=== PATIENT | female | born 1995 | race Caucasian/White ===

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

== ENCOUNTER 2017-10-19 16:03 | Emergency (ER) | payer BC ==
[2017-10-19 16:17] VITALS: BP 118/68
--- NOTE | 2017-10-19 17:26 | UC ---
FLU HPI - HPI Summary HPI Summary: Pt here w/ flu-like sx x [address], aches, fever, nasal congestion w/ PND, cough, nausea w/ upset stomach and diarrhea. Roommates have had influenza. Has not tried anything for sx yet. Temp in dorm is fixed - hot and dry at times. LMP - last week. No intercourse in past 2 months. - History of Current Complaint Chief Complaint: UCGeneralIllness Stated Complaint: ACHES, COUGH, CHILLS Time Seen by Provider: 10/19/17 17:07 Hx Obtained From: Patient Hx Last Menstrual Period: 10/09/17 Pain Intensity: 0 - Allergy/Home Medications Allergies/Adverse Reactions: Allergies Allergy/AdvReac Type Severity Reaction Status Date / Time oxycodone Allergy Intermediate body itches Verified 10/19/17 16:17 PMH/Surg Hx/FS Hx/Imm Hx Previously Healthy: Yes - Surgical History Surgical History: None - Family History Known Family History: Positive: None, Hypertension - Social History Occupation: Student Lives: Dormitory/Roommates Alcohol Use: Rare Substance Use Type: None Smoking Status (MU): Never Smoked Tobacco Review of Systems Constitutional: Fever, Chills Skin: Negative Eyes: Negative ENT: Sore Throat, Nasal Discharge Respiratory: Cough Cardiovascular: Negative Gastrointestinal: Diarrhea Genitourinary: Negative Motor: Negative Neurovascular: Negative Musculoskeletal: Arthralgia Neurological: Headache Psychological: Negative Is Patient Immunocompromised?: No All Other Systems Reviewed And Are Negative: Yes Physical Exam Triage Information Reviewed: Yes Appearance: Well-Appearing - appears mildly fatigued, No Pain Distress, Well- Nourished Vital Signs: Initial Vital Signs Temp 98.8 F 10/19/17 16:12 Pulse 97 10/19/17 16:12 Resp 18 10/19/17 16:12 BP 118/68 10/19/17 16:12 Pulse Ox 97 10/19/17 16:12 Vital Signs Reviewed: Yes Eye Exam: Normal Eyes: Positive: Conjunctiva Clear ENT Exam: Normal ENT: Positive: Normal ENT inspection, Hearing grossly normal, Pharynx normal - cobblestoning, Nasal congestion, Nasal drainage - blody drainage from Rt side ( triggered by influenza swab collection - no active bleeding) -mucosa erythematous, edematous and w/ stuck on d/c, TMs normal, Uvula midline. Negative: Trismus, Muffled voice, Hoarse voice, Sinus tenderness Neck exam: Normal Neck: Positive: Supple, Nontender, No Lymphadenopathy Respiratory Exam: Normal Respiratory: Positive: Lungs clear, Normal breath sounds. Negative: Crackles, Rhonchi, Stridor, Wheezing Cardiovascular Exam: Normal Cardiovascular: Positive: RRR Abdominal Exam: Normal Abdomen Description: Positive: Nontender, No Organomegaly, Soft Bowel Sounds: Positive: Present Musculoskeletal Exam: Normal Musculoskeletal: Positive: Strength Intact Neurological Exam: Normal Neurological: Positive: Alert Psychological Exam: Normal Skin Exam: Normal Flu Course/Dx - Course Course Of Treatment: flu swab negative - Differential Dx/Diagnosis Provider Diagnoses: *viral syndrome Discharge - Discharge Plan Condition: Stable Disposition: HOME Patient Education Materials: Viral Syndrome (ED) Forms: *School Release Referrals: [facility] [Outside] Additional Instructions: Perform nasal wash/netti pot 2 x day with 8 ounces of warm water + 1/4 teaspoon of salt or saline nasal spray as needed Perform throat gargles with warm salt water as needed Drink 60+ ounces of water daily - also juice, gatorade, gingerale - avoid caffeine Sleep 8+ hours per night Avoid Dairy and sugar Drink hot herbal/decaf tea with lemon & honey Drink chicken broth - you may also try BRAT diet (Bananas, Rice, Applesauce, [place]) Use a humidifier in your house, but especially near bed at night. You may also keep home temperature at 68F or less. Try a facial steam with or without eucalyptus essential oil or Terrell's vapor rub for decongestion. Cough drops Avoid smoke, candles, perfumes/colonge, air fresheners, scented lotions, etc Consider taking Vitamin D3 5,000iu and Vitamin C 1,000mg every day during illness
== END 2017-10-19 17:38 | disposition home or self-care (01) ==
LOC: UCCORT 16:03
DX: B34.9 Viral infection, unspecified (principal); Z20.828 Contact with and (suspected) exposure to other viral communicable diseases
CPT/HCPCS: 87502; 99211; G0463

== ENCOUNTER 2017-12-08 18:43 | Emergency (ER) | payer BC ==
--- NOTE | 2017-12-08 19:22 | UC ---
Skin Complaint HPI - HPI Summary HPI Summary: Pt presents with sore throat and sinus congestion for the last 3 days. Also was recently exposed to head lice and would like to be checked. She has not taken anything OTC and denies seeing nits/lice or having head itching. Denies fever, chills, cough, SOB, chest pain. - History of Current Complaint Time Seen by Provider: 12/08/17 19:08 Stated Complaint: LICE CONCERN Hx Obtained From: Patient Hx Last Menstrual Period: 10/09/17 Onset/Duration: Sudden Onset - Allergy/Home Medications Allergies/Adverse Reactions: Allergies Allergy/AdvReac Type Severity Reaction Status Date / Time oxycodone Allergy Intermediate body itches Verified 12/08/17 19:29 Home Medications: Home Medications Sertraline* [Zoloft*] 50 mg PO BEDTIME 12/08/17 [History Confirmed 12/08/17] Review of Systems Constitutional: Negative Skin: Other - Head itching ENT: Sore Throat, Sinus Congestion Respiratory: Negative Cardiovascular: Negative Gastrointestinal: Negative Neurovascular: Negative Musculoskeletal: Negative Neurological: Negative Psychological: Negative All Other Systems Reviewed And Are Negative: Yes PMH/Surg Hx/FS Hx/Imm Hx - Additional Past Medical History Additional PMH: Anxiety Previously Healthy: Yes - Surgical History Surgical History: None - Family History Known Family History: Positive: None, Hypertension - Social History Occupation: Student Lives: Dormitory/Roommates Alcohol Use: Rare Substance Use Type: None Smoking Status (MU): Never Smoked Tobacco Physical Exam - Summary Physical Exam Summary: GENERAL: NAD. WDWN. No pain distress. SKIN: No lice or nits appreciated HEENT: Head: AT/NC Eyes: EOM intact. Conjunctiva clear without inflammation or discharge. Ears: Hearing grossly normal. TMs intact, no bulging, erythema, or edema. Nose: Nasal mucosa pink and moist. NTTP maxillary and frontal sinus. Throat: Posterior oropharynx Mild erythema and 2+ tonsillar enlargement. No exudates. Uvula midline. NECK: Supple. Nontender. No lymphadenopathy. CHEST: CTAB. No r/r/w. No accessory muscle use. Breathing comfortably and in no distress. CV: RRR. Without m/r/g. Pulses intact. Brisk cap refill. NEURO: Alert. CN II-XII grossly intact. PSYCH: Age appropriate behavior. Triage Information Reviewed: Yes Course/Dx - Course Course Of Treatment: No lice or nits appreciated. POC strep negative. Suspect viral pharyngitis. F/u prn - Diagnoses Provider Diagnoses: Viral pharyngitis. Exposure to head lice Discharge - Sign-Out/Discharge Documenting (check all that apply): Discharge - Discharge Plan Condition: Stable Disposition: HOME Patient Education Materials: Pharyngitis (ED) Referrals: Non Staff,Doctor [Primary Care Provider] - Additional Instructions: If you develop a fever, shortness of breath, chest pain, new or worsening symptoms - please call your PCP or go to the ED. - Billing Disposition and Condition Condition: STABLE Disposition: HOME
[2017-12-08 19:29] VITALS: BP 117/65
== END 2017-12-08 20:00 | disposition home or self-care (01) ==
LOC: UCCORT 18:43
DX: J02.8 Acute pharyngitis due to other specified organisms (principal); Z88.5 Allergy status to narcotic agent; Z20.7 Contact with and (suspected) exposure to pediculosis, acariasis and other infestations
CPT/HCPCS: 87651; 99211; G0463

== ENCOUNTER 2018-06-15 11:42 | Emergency (ER) | payer BC ==
[2018-06-15 12:01] VITALS: BP 117/60
[2018-06-15] MEDS ORDERED: Tetan/Diph/Pertus SYR(Tdap)* 0.5 ML SYR(BOOSTRIX) use SYR IM ONE (12:05)
[2018-06-15] MEDS ORDERED: Lidocaine/Epi 1.5%-1:200,000* 30 ML VIAL INJ ONE (12:08)
[2018-06-15] MEDS ORDERED: Lidocaine 2% W/EPI 1:100,000* 20 ML MDV ONE (12:13)
[2018-06-15] MEDS ORDERED: Lidocaine 2% EPI 1:200000 MPF*10-20 ML VIAL INJ ONE (12:26)
--- NOTE | 2018-06-15 12:32 | UC ---
Skin Complaint HPI - HPI Summary HPI Summary: Cut on left hand with a knife this morning. Unknown last tetanus. No numbness or weakness of the fingers. - History of Current Complaint Chief Complaint: UCLaceration Time Seen by Provider: 06/15/18 12:04 Stated Complaint: LEFT HAND LACERATION Hx Obtained From: Patient Hx Last Menstrual Period: 05/27/18 Onset/Duration: Sudden Onset, Lasting Hours Skin Exposure Onset/Duration: Hours Ago Timing: Constant Onset Severity: Moderate Current Severity: Mild Pain Intensity: 5 Location: Discrete, Hand (Left) Character: Painful Aggravating Factor(s): Touch Alleviating Factor(s): Nothing - rest. Associated Signs & Symptoms: Positive: Tenderness - Allergy/Home Medications Allergies/Adverse Reactions: Allergies Allergy/AdvReac Type Severity Reaction Status Date / Time oxycodone Allergy Intermediate body itches Verified 12/08/17 19:29 Review of Systems Skin: Other - laceration All Other Systems Reviewed And Are Negative: Yes PMH/Surg Hx/FS Hx/Imm Hx Previously Healthy: Yes - Surgical History Surgical History: Yes Surgery Procedure, Year, and Place: bilateral knee surgery - Family History Known Family History: Positive: None, Hypertension - Social History Occupation: Student Alcohol Use: Occasionally Substance Use Type: None Smoking Status (MU): Never Smoked Tobacco Physical Exam Triage Information Reviewed: Yes Appearance: Well-Appearing, No Pain Distress, Well-Nourished Vital Signs: Initial Vital Signs Temp 98.6 F 06/15/18 11:57 Pulse 78 06/15/18 11:57 Resp 13 06/15/18 11:57 BP 117/60 06/15/18 11:57 Pulse Ox 100 06/15/18 11:57 Vital Signs Reviewed: Yes Eyes: Positive: Conjunctiva Clear ENT: Positive: Normal ENT inspection Neck: Positive: Supple Respiratory: Positive: No respiratory distress Cardiovascular: Positive: Brisk Capillary Refill Abdomen Description: Negative: Distended Musculoskeletal: Positive: Strength Intact, ROM Intact, No Edema Neurological: Positive: Alert, Muscle Tone Normal. Negative: Fatigued Psychological: Positive: Age Appropriate Behavior Skin: Positive: Other - 1cm laceration with fat protruding. straight. Laceration Repair - Laceration Repair 1 Description: Linear Laceration Size After Repair: Length (cm) - 1cm Modified For Repair: No Type Injection: Local Anesthesia Used: 2.0% Lido Additive Used (in ml): Epi Cleansing Completed Via Routine Prep: Yes Irrigation With Pressure Irrigation Device: Yes Closure Material: Sutures Closure Method: Single Layer Suture Of: Skin Suture Type: Prolene - 5-0 Two total. Course/Dx - Diagnoses Provider Diagnoses: laceration repair simple. Discharge - Sign-Out/Discharge Documenting (check all that apply): Patient Departure All imaging exams completed and their final reports reviewed: No Studies - Discharge Plan Condition: Good Disposition: HOME Patient Education Materials: Laceration (ED), Care For Your Stitches (DC) Forms: *Work Release Referrals: No Primary Care Phys,NOPCP [Primary Care Provider] - - Billing Disposition and Condition Condition: GOOD Disposition: Home
== END 2018-06-15 12:40 | disposition home or self-care (01) ==
LOC: UCCORT 11:42
DX: S61.412A Laceration without foreign body of left hand, initial encounter (principal); W26.0XXA Contact with knife, initial encounter; Y92.9 Unspecified place or not applicable; Z88.5 Allergy status to narcotic agent
CPT/HCPCS: 12001; 90471; 90715; 99211; G0463

== ENCOUNTER 2018-12-11 12:31 | Emergency (ER) | payer BC ==
[2018-12-11 13:02] VITALS: BP 107/57
[2018-12-11] MEDS ORDERED: Acetaminophen TAB* 325 MG PO ONE (13:07)
[2018-12-11 13:24] LABS: Influenza A Molecular NEGATIVE (Negative); Influenza B Molecular NEGATIVE (Negative)
--- NOTE | 2018-12-11 13:40 | UC ---
FLU HPI - HPI Summary HPI Summary: Pt presents with c/o sudden onset ST, fever, chills, and body aches X 2 days. Additionally, pt has a distal left thumb fracture that she is being followed by local orthopedic provider and just completed 10 days of antibiotic for osteomylitis prevention - History of Current Complaint Chief Complaint: UCGeneralIllness Stated Complaint: FEVER DIARRHEA BODYACHES Time Seen by Provider: 12/11/18 13:05 Hx Obtained From: Patient Hx Last Menstrual Period: 12/02/18 ?: No Onset/Duration: Sudden Onset, Lasting Days, Still Present Severity Currently: Moderate Severity Initially: Moderate Pain Intensity: 5 Associated Signs & Symptoms: Positive: Fever, Myalgia, Sore Throat, Nasal Congestion Related Hx: Possible Flu/Infectious Exposure - Risk Factors Influenza Risk Factors: Negative - Allergy/Home Medications Allergies/Adverse Reactions: Allergies Allergy/AdvReac Type Severity Reaction Status Date / Time oxycodone Allergy Intermediate body itches Verified 12/08/17 19:29 PMH/Surg Hx/FS Hx/Imm Hx Previously Healthy: Yes - Surgical History Surgical History: Yes Surgery Procedure, Year, and Place: bilateral knee surgery - Family History Known Family History: Positive: Hypertension - Social History Occupation: Student Lives: Dormitory/Roommates Alcohol Use: Occasionally Substance Use Type: None Smoking Status (MU): Never Smoked Tobacco Have You Smoked in the Last Year: No - Immunization History Vaccination Up to Date: Yes Review of Systems All Other Systems Reviewed And Are Negative: Yes Constitutional: Positive: Fever, Chills, Fatigue Skin: Positive: Negative Eyes: Positive: Negative ENT: Positive: Sore Throat, Sinus Congestion Respiratory: Positive: Cough Cardiovascular: Positive: Negative Gastrointestinal: Positive: Negative Genitourinary: Positive: Negative Motor: Positive: Decreased ROM - left thumb, pt has distal fracture, was treated recently with antibiotics. Musculoskeletal: Positive: Arthralgia - left thumb, Myalgia - left thumb Neurological: Positive: Negative Psychological: Positive: Negative Is Patient Immunocompromised?: No Physical Exam Triage Information Reviewed: Yes Appearance: Ill-Appearing Vital Signs: Initial Vital Signs Temp 98.3 F 12/11/18 12:56 Pulse 75 12/11/18 12:56 Resp 16 12/11/18 12:56 BP 107/57 12/11/18 12:56 Pulse Ox 100 12/11/18 12:56 Vital Signs Reviewed: Yes Eye Exam: Normal ENT Exam: Normal ENT: Positive: Pharyngeal erythema, Nasal congestion, Tonsillar swelling Dental Exam: Normal Neck exam: Normal Neck: Positive: Supple, Nontender, No Lymphadenopathy Respiratory Exam: Normal Respiratory: Positive: Normal breath sounds Cardiovascular Exam: Normal Musculoskeletal: Positive: ROM Limited @ - left thumb Neurological Exam: Normal Psychological Exam: Normal Skin Exam: Normal, Other - left htumb nail, covered with protective cover and sutured in place Flu Course/Dx - Course Course Of Treatment: RS and RF negative - Differential Dx/Diagnosis Differential Diagnosis/HQI/PQRI: Influenza, Upper Respiratory Infection Provider Diagnosis: Viral infection Discharge - Sign-Out/Discharge Documenting (check all that apply): Patient Departure All imaging exams completed and their final reports reviewed: No Studies - Discharge Plan Condition: Stable Disposition: HOME Patient Education Materials: Viral Syndrome (ED) Forms: *Physical Education Release, *School Release Referrals: [facility] [facility] [Outside] - If Needed No Primary Care Phys,NOPCP [Primary Care Provider] - - Billing Disposition and Condition Condition: STABLE Disposition: Home
== END 2018-12-11 13:49 | disposition home or self-care (01) ==
LOC: UCCORT 12:31
DX: B34.9 Viral infection, unspecified (principal)
CPT/HCPCS: 87651; 99212; A9270-GY; G0463

== ENCOUNTER 2019-05-06 13:06 | Emergency (ER) | payer BC ==
[2019-05-06 13:15] VITALS: BP 119/62
--- NOTE | 2019-05-06 13:34 | UC ---
Throat Pain/Nasal Jean Paul HPI - HPI Summary HPI Summary: sore throat x 3 days pain is 6 out of 10 worse with eating, better with Tylenol + fever, chills, no cough , no nasal congestion - History of Current Complaint Chief Complaint: UCGeneralIllness Stated Complaint: THROAT COMPLAINT Time Seen by Provider: 05/06/19 13:12 Hx Obtained From: Patient Hx Last Menstrual Period: 04/17/19 ?: No Onset/Duration: Gradual Onset, Lasting Days - 3, Still Present Severity: Moderate Pain Intensity: 8 Pain Scale Used: 0-10 Numeric Cough: None Associated Signs & Symptoms: Positive: Fever. Negative: Dysphagia, FB Sensation , Drooling, Wheezing, Hoarseness, Sinus Discomfort, Nasal Discharge, Vomiting, Rash - Allergies/Home Medications Allergies/Adverse Reactions: Allergies Allergy/AdvReac Type Severity Reaction Status Date / Time oxycodone Allergy Intermediate body itches Verified 05/06/19 13:11 PMH/Surg Hx/FS Hx/Imm Hx Previously Healthy: Yes - Surgical History Surgical History: Yes Surgery Procedure, Year, and Place: bilateral knee surgery. nasal surgery - Family History Known Family History: Positive: None, Hypertension - Social History Alcohol Use: Occasionally Substance Use Type: None Smoking Status (MU): Never Smoked Tobacco Have You Smoked in the Last Year: No - Immunization History Vaccination Up to Date: Yes Review of Systems All Other Systems Reviewed And Are Negative: Yes ENT: Positive: Sore Throat Is Patient Immunocompromised?: No Physical Exam Triage Information Reviewed: Yes Appearance: Well-Appearing, No Pain Distress, Well-Nourished Vital Signs: Initial Vital Signs Temp 98.9 F 05/06/19 13:12 Pulse 67 05/06/19 13:12 Resp 14 05/06/19 13:12 BP 119/62 05/06/19 13:12 Pulse Ox 100 05/06/19 13:12 Vital Signs Reviewed: Yes Eye Exam: Normal Eyes: Positive: Conjunctiva Clear ENT: Positive: Normal ENT inspection, Hearing grossly normal, Pharyngeal erythema, Tonsillar swelling, Tonsillar exudate Neck exam: Normal Neck: Positive: Supple, Nontender, No Lymphadenopathy Respiratory: Positive: Chest non-tender, Lungs clear, Normal breath sounds Abdominal Exam: Normal Abdomen Description: Positive: Nontender, Soft Bowel Sounds: Positive: Present Skin Exam: Normal Throat Pain/Nasal Course/Dx - Differential Dx/Diagnosis Provider Diagnosis: Strep pharyngitis Discharge ED - Sign-Out/Discharge Documenting (check all that apply): Patient Departure All imaging exams completed and their final reports reviewed: No Studies - Discharge Plan Condition: Stable Disposition: HOME Prescriptions: Amoxicillin PO (*) [Amoxicillin 875 MG (*)] 875 mg PO BID #20 tab Patient Education Materials: Strep Throat (ED) Forms: *School Release Referrals: No Primary Care Phys,NOPCP [Primary Care Provider] - If Needed - Billing Disposition and Condition Condition: STABLE Disposition: Home
== END 2019-05-06 13:29 | disposition home or self-care (01) ==
LOC: UCCORT 13:06
DX: J02.0 Streptococcal pharyngitis (principal); Z88.5 Allergy status to narcotic agent
CPT/HCPCS: 87651; 99212; G0463

== ENCOUNTER 2019-06-26 12:57 | Emergency (ER) | payer BC ==
[2019-06-26 13:12] VITALS: BP 108/60
--- NOTE | 2019-06-26 13:44 | UC ---
Complaint Female HPI - HPI Summary HPI Summary: Pt presents with c/o sudden onset of urinary urgency, frequency and burning that began 3 days ago. Pt denies any risk for STI or - History Of Current Complaint Chief Complaint: UCGU Stated Complaint: URINARY Time Seen by Provider: 06/26/19 13:17 Hx Obtained From: Patient Hx Last Menstrual Period: 06/17/19 ?: No Onset/Duration: Sudden Onset, Lasting Days, Still Present, Worse Since - onset Timing: Constant Severity Initially: Mild Severity Currently: Mild Pain Intensity: 0 Character: Dull, Burning Aggravating Factor(s): Urination Associated Signs And Symptoms: Positive: Negative - Risk Factors Ectopic Risk Factor: Negative Ovarian Torsion Risk Factor: Reproductive Age - Allergies/Home Medications Allergies/Adverse Reactions: Allergies Allergy/AdvReac Type Severity Reaction Status Date / Time oxycodone Allergy Intermediate body itches Verified 06/26/19 13:12 Home Medications: Home Medications Spironolactone 100 mg PO DAILY 06/26/19 [History Confirmed 06/26/19] PMH/Surg Hx/FS Hx/Imm Hx Previously Healthy: Yes - Surgical History Surgical History: Yes Surgery Procedure, Year, and Place: bilateral knee surgery. nasal surgery - Family History Known Family History: Positive: Hypertension - Social History Occupation: Student Lives: Dormitory/Roommates Alcohol Use: Occasionally Substance Use Type: None Smoking Status (MU): Never Smoked Tobacco Have You Smoked in the Last Year: No - Immunization History Vaccination Up to Date: Yes Review of Systems All Other Systems Reviewed And Are Negative: Yes Constitutional: Positive: Negative Skin: Positive: Negative Eyes: Positive: Negative ENT: Positive: Negative Respiratory: Positive: Negative Cardiovascular: Positive: Negative Gastrointestinal: Positive: Negative Genitourinary: Positive: Dysuria, Frequency, Urgency Motor: Positive: Negative Neurovascular: Positive: Negative Musculoskeletal: Positive: Negative Neurological: Positive: Negative Psychological: Positive: Negative Is Patient Immunocompromised?: No Physical Exam Triage Information Reviewed: Yes Appearance: Well-Appearing Vital Signs: Initial Vital Signs Temp 98.1 F 06/26/19 13:08 Pulse 60 06/26/19 13:08 Resp 16 06/26/19 13:08 BP 108/60 06/26/19 13:08 Pulse Ox 100 06/26/19 13:08 Vital Signs Reviewed: Yes Eye Exam: Normal ENT Exam: Normal Dental Exam: Normal Neck exam: Normal Respiratory Exam: Normal Cardiovascular Exam: Normal Abdominal Exam: Normal Musculoskeletal Exam: Normal Neurological Exam: Normal Psychological Exam: Normal Skin Exam: Normal Complaint Female Dx - Differential Dx/Diagnosis Differential Diagnosis/HQI/PQRI: Sexually Transmitted Disease, Urinary Tract Infection Provider Diagnosis: UTI (urinary tract infection) Discharge ED - Sign-Out/Discharge Documenting (check all that apply): Patient Departure All imaging exams completed and their final reports reviewed: No Studies - Discharge Plan Condition: Stable Disposition: HOME Prescriptions: Fluconazole 150 MG TAB* [Diflucan 150 MG TAB*] 150 mg PO ONCE #2 tablet Nitrofurantoin Monohyd/M-Cryst [Macrobid 100 mg Capsule] 100 mg PO Q12H #10 cap Phenazopyridine TAB* [Pyridium 100 mg TAB*] 100 mg PO Q8H #3 tab Patient Education Materials: Urinary Tract Infection in Women (ED) Referrals: [facility] [place] [facility] [Outside] - If Needed No Primary Care Phys,NOPCP [Primary Care Provider] - - Billing Disposition and Condition Condition: STABLE Disposition: Home
--- NOTE | 2019-06-28 07:44 | UC ---
- Progress Note Progress Note: + staph saprophyticus > 100,000 -routinely sensitive to the macrobid that she is on. Course/Dx - Diagnoses Provider Diagnoses: UTI (urinary tract infection) Discharge ED - Sign-Out/Discharge Documenting (check all that apply): Post-Discharge Follow Up All imaging exams completed and their final reports reviewed: No Studies - Discharge Plan Condition: Stable Disposition: HOME Prescriptions: Fluconazole 150 MG TAB* [Diflucan 150 MG TAB*] 150 mg PO ONCE #2 tablet Nitrofurantoin Monohyd/M-Cryst [Macrobid 100 mg Capsule] 100 mg PO Q12H #10 cap Phenazopyridine TAB* [Pyridium 100 mg TAB*] 100 mg PO Q8H #3 tab Patient Education Materials: Urinary Tract Infection in Women (ED) Referrals: [facility] [place] [facility] [Outside] - If Needed No Primary Care Phys,NOPCP [Primary Care Provider] - - Billing Disposition and Condition Condition: STABLE Disposition: Home
== END 2019-06-26 13:52 | disposition home or self-care (01) ==
LOC: UCCORT 12:57
DX: N39.0 Urinary tract infection, site not specified (principal); Z88.5 Allergy status to narcotic agent
CPT/HCPCS: 81003; 84702; 87077; 87086; 99212; G0463

== ENCOUNTER 2019-06-29 14:48 | Emergency (ER) | payer BC ==
[2019-06-29 15:16] VITALS: BP 126/76
[2019-06-29] MEDS ORDERED: Ondansetron ODT TAB* 4 MG PO ONE (15:59)
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
== END 2019-06-29 16:06 | disposition home or self-care (01) ==
LOC: UCCORT 14:48
DX: S06.0X9A Concussion with loss of consciousness of unspecified duration, initial encounter (principal); Z88.5 Allergy status to narcotic agent; W50.0XXA Accidental hit or strike by another person, initial encounter; Y92.59 Other trade areas as the place of occurrence of the external cause
CPT/HCPCS: 99212; A9270-GY; G0463